=== PATIENT | female | born 1940 | race Caucasian/White ===

== ENCOUNTER 2017-07-18 14:52 | Inpatient (IN) | payer BC ==
[~2017-07-18] VITALS: Ht 147.3 cm; Wt 75.3 kg
[2017-07-18 14:52] VITALS: BP_SYST 123
[~2017-07-18 14:52] MED LIST: LISINOPRIL; SYNTHROID
[2017-07-18 16:01] LABS: HEMATOCRIT 32.7 % (36-48); HEMOGLOBIN 11.4 g/dL (12.0-16.0); MEAN CORPUSCULAR HEMOGLOBIN 31 pg (27-31); MEAN CORPUSCULAR HGB CONC 35 % (32-36); MEAN CORPUSCULAR VOLUME 90 fL (79.0-98.0); PLATELET COUNT (AUTO) 229 K/uL (130-430); RED BLOOD CELL COUNT(AUTO) 3.65 MIL/uL (4.2-6.2); RED CELL DISTRIBUTION WIDTH 12.8 % (9.0-15.0); WHITE BLOOD COUNT (AUTO) 3.7 K/uL (4.8-10.8)
[2017-07-18 16:37] LABS: ANION GAP 7 (5-15); CALCIUM 9.3 mg/dL (8.4-11.0); CHLORIDE 103 mmol/L (98-107); CREATININE 1.09 mg/dL (0.55-1.30); GLUCOSE 88 mg/dL (70-99); POTASSIUM 3.8 mmol/L (3.5-5.1); SODIUM SERUM 135 mmol/L (136-145); UREA NITROGEN, BLOOD 24 mg/dL (8-21)
[2017-07-18 16:42] LABS: ALANINE AMINOTRANSFERASE 35 U/L (12-78); ALBUMIN 3.9 g/dL (3.4-4.8); ASPARTATE AMINOTRANSFERASE 41 U/L (10-37); TOTAL BILIRUBIN 0.1 mg/dL (0.0-1.0)
[2017-07-18 16:46] LABS: ALCOHOL, BLOOD < 3 mg/dL (<10)
[2017-07-18 17:03] LABS: CLARITY/URINE HAZY (CLEAR); COLOR,URINE YELLOW (YELLOW); PROTEIN URINE TRACE (NEGATIVE)
[2017-07-18 17:04] LABS: BILIRUBIN,URINE NEGATIVE (NEGATIVE); BLOOD, URINE TRACE (NEGATIVE); GLUCOSE,URINE NEGATIVE (NEGATIVE); KETONES,URINE NEGATIVE (NEGATIVE); LEUKOCYTE ESTERASE ,URINE NEGATIVE (NEGATIVE); NITRITE, URINE NEGATIVE (NEGATIVE); UROBILINOGEN,URINE 0.2 (0.2-1.0)
[2017-07-18 17:09] LABS: BACTERIA,URINE FEW /HPF (None Seen); RBC,URINE 0-3 /HPF (0-3); WBC,URINE 0-3 /HPF (0-3)
[2017-07-18 17:10] LABS: FINE GRANULAR CASTS,URINE 0-10 /LPF (None Seen); HYALINE CASTS, URINE 0-10 /LPF (None Seen); MUCUS,URINE 1+ /LPF (None Seen)
[2017-07-18 17:11] LABS: PROTHROMBIN TIME 10.4 SECS (9.5-12.5)
[2017-07-18 17:13] LABS: CKMB RELATIVE INDEX 0.2 (0.0-2.9); CREATINE KINASE MB 1.2 ng/mL (0-3.6)
[2017-07-18] MEDS ORDERED: LEVO50TA77 PO (17:44)
[2017-07-18] MEDS ORDERED: LISI10TA5 PO (17:44)
[2017-07-18] MEDS ORDERED: MORPHINE 2 MG/ML INJ. SYRINGE IVP PRN (18:00)
[2017-07-18] MEDS ORDERED: ACETAMINOPHEN 325 MG TABLET PO PRN (18:00)
[2017-07-18] MEDS ORDERED: ONDANSETRON HCL 4 MG/2 ML VIAL IVP PRN (18:00)
[2017-07-18 18:57] LABS: BAND % (MANUAL) 1 % (0-6); BASOPHILS % (MANUAL) 0 % (0-2); EOSINOPHILS % (MANUAL) 0 % (0-7); LYMPHOCYTES % (MANUAL) 38 % (20-46); MONOCYTES % (MANUAL) 18 % (0-11)
[2017-07-18 19:10] VITALS: BP_SYST 132
[2017-07-18 20:00] VITALS: BP_SYST 132
[2017-07-18] MEDS: NACL 0.9% 1,000 ML IV SCH (20:08)
[2017-07-18] MEDS: DOCUSATE SODIUM 100 MG CAPSULE PO SCH (20:32)
[2017-07-18 21:07] LABS: PHOSPHORUS 3.7 mg/dL (2.7-4.5); THYROID STIMULATING HORMONE 0.75 uIu/mL (0.34-4.82)
[2017-07-18] MEDS: PROMETHAZINE 6.25 MG/ CODEINE 10 MG/ 5 ML PO PRN (21:48)
[2017-07-19 00:55] VITALS: BP_SYST 125
[2017-07-19] MEDS: PROMETHAZINE 6.25 MG/ CODEINE 10 MG/ 5 ML PO PRN ×3 (03:09→21:20)
[2017-07-19 08:07] LABS: CHOLESTEROL 207 mg/dL (<200); HDL CHOLESTEROL 39 mg/dL (>55); LDL CHOLESTEROL 119 mg/dL (<100); TRIGLYCERIDES 218 mg/dL (30-150)
[2017-07-19 08:11] VITALS: BP_SYST 122
[2017-07-19] MEDS ORDERED: ATORVASTATIN 20 MG TABLET PO SCH (09:00)
[2017-07-19] MEDS: ASPIRIN 81 MG TAB.CHEW PO SCH (09:15)
[2017-07-19] MEDS: DOCUSATE SODIUM 100 MG CAPSULE PO SCH ×2 (09:16→21:00)
[2017-07-19] MEDS: LEVOTHYROXINE SODIUM 0.05 MG TABLET PO SCH (09:16)
[2017-07-19] MEDS: LISINOPRIL 10 MG TABLET (PRINIVIL) PO SCH (09:17)
[2017-07-19] MEDS: NACL 0.9% 1,000 ML IV SCH (11:33)
[2017-07-19 12:28] VITALS: BP_SYST 111
[2017-07-19 16:52] VITALS: BP_SYST 126
[2017-07-19 20:00] VITALS: BP_SYST 129
[2017-07-19] MEDS: SIMVASTATIN 10 MG TABLET PO SCH (21:20)
[2017-07-20 00:52] VITALS: BP_SYST 95
[2017-07-20] MEDS: NACL 0.9% 1,000 ML IV SCH ×2 (04:52→23:49)
[2017-07-20 05:06] LABS: T4 (THYROXINE) 6.9 ug/dL (4.5-12.0)
[2017-07-20] MEDS: PROMETHAZINE 6.25 MG/ CODEINE 10 MG/ 5 ML PO PRN ×2 (05:15→21:22)
[2017-07-20 06:57] LABS: BASOPHILS % (AUTO) 0.4 % (0.0-2.0); EOSINOPHILS # (AUTO) 0.1 K/uL (0.0-0.4); EOSINOPHILS % (AUTO) 1.9 % (0.0-4.0); HEMATOCRIT 30.8 % (36-48); HEMOGLOBIN 10.1 g/dL (12.0-16.0); LYMPHOCYTES # (AUTO) 1.5 K/uL (1.0-5.5); LYMPHOCYTES % (AUTO) 39.7 % (20.5-51.5); MEAN CORPUSCULAR HEMOGLOBIN 30 pg (27-31); MEAN CORPUSCULAR HGB CONC 33 % (32-36); MEAN CORPUSCULAR VOLUME 92 fL (79.0-98.0); MONOCYTES # (AUTO) 0.6 K/uL (0.0-1.0); NEUTROPHILS # (AUTO) 1.4 K/uL (1.8-7.7); PLATELET COUNT (AUTO) 214 K/uL (130-430); RED BLOOD CELL COUNT(AUTO) 3.35 MIL/uL (4.2-6.2); RED CELL DISTRIBUTION WIDTH 13.4 % (9.0-15.0); WHITE BLOOD COUNT (AUTO) 3.6 K/uL (4.8-10.8)
[2017-07-20 07:07] LABS: ANION GAP 8 (5-15); CALCIUM 8.2 mg/dL (8.4-11.0); CHLORIDE 106 mmol/L (98-107); CREATININE 0.77 mg/dL (0.55-1.30); GLUCOSE 100 mg/dL (70-99); PHOSPHORUS 2.7 mg/dL (2.7-4.5); POTASSIUM 3.8 mmol/L (3.5-5.1); SODIUM SERUM 138 mmol/L (136-145); UREA NITROGEN, BLOOD 14 mg/dL (8-21)
[2017-07-20 08:10] VITALS: BP_SYST 131
[2017-07-20] MEDS: LEVOTHYROXINE SODIUM 0.05 MG TABLET PO SCH (08:29)
[2017-07-20] MEDS: DOCUSATE SODIUM 100 MG CAPSULE PO SCH ×3 (08:29→21:00)
[2017-07-20] MEDS: ASPIRIN 81 MG TAB.CHEW PO SCH (08:29)
[2017-07-20] MEDS: LISINOPRIL 10 MG TABLET (PRINIVIL) PO SCH (08:29)
[2017-07-20 11:26] VITALS: BP_SYST 124
[2017-07-20 12:08] LABS: HEMOGLOBIN A1C 5.6 % (4.8-5.6)
[2017-07-20 15:19] VITALS: BP_SYST 114
[2017-07-20 20:15] VITALS: BP_SYST 111
[2017-07-20] MEDS: SIMVASTATIN 10 MG TABLET PO SCH (21:18)
[2017-07-20 23:24] VITALS: BP_SYST 119
[2017-07-21] MEDS ORDERED: ASPI-1063 PO (07:33)
[2017-07-21 08:00] VITALS: BP_SYST 133
[2017-07-21] MEDS: LISINOPRIL 10 MG TABLET (PRINIVIL) PO SCH (08:05)
[2017-07-21] MEDS: LEVOTHYROXINE SODIUM 0.05 MG TABLET PO SCH (08:05)
[2017-07-21] MEDS: ASPIRIN 81 MG TAB.CHEW PO SCH (08:05)
[2017-07-21] MEDS: PROMETHAZINE 6.25 MG/ CODEINE 10 MG/ 5 ML PO PRN (08:05)
[2017-07-21] MEDS: DOCUSATE SODIUM 100 MG CAPSULE PO SCH (08:06)
[2017-07-21 08:11] VITALS: BP_SYST 133
== END 2017-07-21 08:55 | disposition home or self-care (01) | DRG 69 ==
LOC: SED 14:52 → STU 17:47 → SMU 07-20 07:23
PROVIDERS: ADMIT Family Medicine; ATTEND Family Medicine
DX: G45.9 Transient cerebral ischemic attack, unspecified (principal); G90.9 Disorder of the autonomic nervous system, unspecified; I10 Essential (primary) hypertension; E03.9 Hypothyroidism, unspecified; Z79.899 Other long term (current) drug therapy
CPT/HCPCS: 36415; 70450-TC; 70551; 71045; 80048; 80053; 80061; 81000-TC; 82150-TC; 82550-TC; 82553-TC; 83036; 83690-TC; 83735-TC; 83880; 84100-TC; 84436; 84439; 84443-TC; 84479; 84484; 85007; 85025; 85027; 85610-TC; 85730-TC; 93005; 93880; 99285; G0481; G0482; J7030